=== PATIENT | female | born 1980 | race Caucasian/White ===

== ENCOUNTER 2017-05-30 14:30 | Emergency (ER) | payer SELFPAY ==
[~2017-05-30] VITALS: Ht 154.9 cm; Wt 75.5 kg
[2017-05-30 14:54] VITALS: BP 107/70
--- NOTE | 2017-05-30 18:04 | NUR ---
CALLED TWICE AT THE [facility] WITH NO ANSWER; BIANCA
== END 2017-05-30 18:04 | disposition left against medical advice (07) ==
LOC: MED 14:30
DX: M79.1 Myalgia (principal); Z53.21 Procedure and treatment not carried out due to patient leaving prior to being seen by health care provider